=== PATIENT | male | born 1990 | race Caucasian/White ===

== ENCOUNTER → 2022-04-09 | Outpatient (CLI) | payer OTHER, SELFPAY ==
[2022-04-09 12:30] LABS: Absolute Lymphocyte Count 2.19 X10^3/uL (0.83-4.51); Absolute Neutrophil Count 3.5 X10^3/uL (2.0-7.7); Basophil# 0.03 X10^3/uL; Basophil% 0.5 % (0-1); Eosinophil# 0.16 X10^3/uL; Eosinophils% 2.5 % (0-5); Hematocrit 45.2 % (40-54); Lymphocyte # 2.19 X10^3/ul (0.83-4.51); Lymphocyte % 34.3 % (19-41); Mean Corp Hgb Conc 33.2 g/dL (32-36); Mean Corpuscular Hgb 30.4 pg (27.0-32.0); Mean Corpuscular Volume 91.5 fL (80-94); Mean Platelet Vol. 11.6 fl (6.2-12.0); Monocyte# 0.49 X10^3/uL; Monocyte% 7.7 % (0-10); NRBC Flagged by Analyzer 0 % (0-5); Neutrophil # 3.49 X10^3/uL (2.7-7.7); Neutrophil % 54.5 % (47-70); Platelet Count 247 K/mm3 (150-450); RBC Distribution Width CV 12.6 % (11.6-14.6); RBC Distribution Width SD 41.7 fl (35.1-43.9); Red Blood Count 4.94 M/mm3 (4.6-6.2); White Blood Count 6.4 K/mm3 (4.4-11.0)
[2022-04-09 13:08] LABS: ALB/GLOB Ratio 1.3 RATIO (0.9-2.4); AST(SGOT) 45 U/L (15-37); Alanine Aminotransfer ALT/SGPT 77 U/L (16-61); Albumin, Serum 4.3 g/dL (3.2-5.0); Alkaline Phosphatase 127 U/L (45-117); Anion Gap 9 (5-15); BUN 12 mg/dL (7-18); BUN/Creat Ratio 15.1 RATIO (10-20); Calcium,Total 9.4 mg/dL (8.5-10.1); Chloride 106 mmol/L (98-107); Creatinine, Serum 0.79 mg/dL (0.70-1.30); EST Glomerular Filtration Rate 122 mL/min (>60); Est Glom Filt Rate - Afr Amer 147 mL/min (>60); Globulin 3.4 g/dL (2.2-4.2); Glucose 87 mg/dL (74-106); Potassium 3.8 mmol/L (3.5-5.1); Protein, Total 7.7 g/dL (6.4-8.2); Sodium Level 140 mmol/L (136-145)
== END | disposition home or self-care (01) ==
LOC: MFPLAB 11:23
PROVIDERS: Visit Provider Family Medicine
DX: Z01.818 Encounter for other preprocedural examination (principal)
CPT/HCPCS: 36415; 80053; 85025

== ENCOUNTER 2022-04-27 10:48 | Day surgery (SDC) | payer OTHER, SELFPAY ==
[2022-04-27] VITALS (8 sets, daily range): BP systolic 117–144; BP diastolic 67–82; PULSE 73–91; RESP 16–20; TEMP 36.2–36.6; O2SAT 92–100; BMI 29.4
[2022-04-27] MEDS: Lactated Ringers 1,000 ML 15 ML IV (11:23)
--- NOTE | 2022-04-27 11:41 | DCINST_ITS ---
Discharge Instructions Diet Discharge Diet: No restrictions Activity Discharge Activity: May Shower (Use cast bag covering to keep dressings clean, dry, and intact. Shower while seated) and Use Crutches (Use crutches or knee scooter to assist in remaining compliant with nonweightbearing status to left lower extremity) Weight Bearing Status: No weight bearing (Please remain nonweightbearing to the left lower extremity with use of crutches or knee scooter) Keep extremity elevated above heart level: Left Leg (Elevate left lower extremity at all times of rest for postoperative edema control) Dressing / Incision Call your doctor if you observe: Fever of 101 or Higher, Chest pain, Calf discomfort and Uncontrolled pain Change Dressing in: do not change dressing (Please keep dressings clean dry and intact to left foot) Remove Dressing in: leave in place till F/U (Physician will change dressing at first postoperative visit) Cleanse incision/area with: Do not get Incision Wet and Keep Dressing Clean & Dry (Please keep dressings clean, dry, and intact to the left lower extremity) Follow Up Care Please Follow Up With: Husam Holman DPM When: Patient has first postoperative appointment scheduled in office next week Test Results: Test results from this visit will be discussed in further detail at your follow- up appointment, if applicable. Discharge Plan Admission Attending Provider: Husam Holman Primary Care Provider: Spencer Queen Discharge Orders/Prescriptions Prescriptions: New doxycycline hyclate 100 mg capsule 100 mg PO DAILY Qty: 10 0RF aspirin 325 mg capsule 325 mg PO DAILY Qty: 20 0RF oxycodone 5 mg capsule 5 mg PO Q4H PRN (Reason: pain) 7 Days Qty: 28 0RF acetaminophen 325 mg capsule 325 mg PO Q4H PRN (Reason: pain) 7 Days Qty: 28 0RF No Action rizatriptan 5 mg Tablet,Disintegrating 5 mg PO Q2H PRN (Reason: Migraine Headache) Rx Instructions: do not exceed 6 doses per 24 hrs [place] 3 Fish Oil Concentrate Capsule 1,000 mg PO DAILY duloxetine [Cymbalta] 30 mg Capsule,Delayed Release(Dr/Ec) 30 mg PO QHS cholecalciferol (vitamin D3) [Vitamin D3] 25 mcg (1,000 unit) Tablet 25 mcg PO DAILY melatonin 2.5 mg Tablet,Chewable 2.5 mg PO QHS colchicine 0.6 mg Capsule 0.6 mg PO DAILY allopurinol 200 mg Tablet 400 mg PO QHS Referrals / Follow Up: Spencer Queen DO [Primary Care Provider] - Disposition Disposition (needs filled in before D/C Order can be placed): Home, Self Care
[2022-04-27] MEDS: Cefazolin 2 GM in 0.9% Normal Saline 100 ML IV (12:09)
--- NOTE | 2022-04-27 12:23 | RAD_ITS ---
STUDY: X-RAY - LEFT ANKLE REASON FOR EXAM: Male, 32 years old. Intraoperative digital documentation. TECHNIQUE: 2 intraoperative digital documentation view(s) of the ankle. COMPARISON: None. FINDINGS: 2 intraoperative digital documentation views were obtained. RAD/Ankle 2 Views IMPRESSION: Intraoperative digital documentation views. Electronically Signed: Dipak Ricks, at 13:58 EST ,
[2022-04-27] MEDS: Bupivacaine 0.25% 30 ML Vial (12:39)
[2022-04-27] MEDS: Lidocaine 1% (30 ml sdv) 30 ML Vial (12:39)
--- NOTE | 2022-04-27 13:56 | OP.PCM_ITS ---
Problems Associated Problem List Diagnoses (1) Subluxation of peroneal tendon of left foot: Report of Operation Date of Procedure: 04/27/22 Pre-Operative Diagnosis: Subluxation of peroneal tendons left foot Post-Operative Diagnosis: Subluxation peroneal tendons left foot Surgery/Procedure Performed:: 1. Peroneal groove deepening with relocation of peroneal tendons left ankle 2. Repair of the peroneal retinaculum left foot Description of Surgical Findings:: See operative report for findings Surgeon: Husam Holman systems requirements planner: Yuridia Montaño DPM PGY-1 Type of Anesthesia: General and Local (10 cc 1:1 mixture of 1% lidocaine plain and 0.25% Marcaine plain) Specimen's removed: None Drains: None Estimated Blood Loss (mL): < 5mL Description of Procedure: HPI/indication: Patient is a 32-year-old male who presented to the office on 03/05/2022 with complaining of popping of the left ankle following an ankle sprain that occurred while rockclimbing last fall. [facility] and has been having chronic popping of the ankle and noticed that his tendons are slipping out of place. He reported some discomfort with this on occasion. Examination was performed and he demonstrates subluxing peroneal brevis and longus tendons following his ankle sprain injury. The tendons are visible below the skin slipping out over the lateral malleolus with subluxing tendons able to return to anatomic position with movement of the ankle but will sublux again with continued movement. He did have history of flatfoot reconstruction surgery as a teenager and reports no issues. I discussed the risks of dislocating peroneal tendons and the risk of repeated subluxation that will result in peroneal tendinitis, partial tearing, or spontaneous rupture of the peroneal tendons. Discussed long-term biomechanical effects and subluxing peroneal tendons. He has tried conservative care options of ankle brace, orthotics, supportive shoe gear, change of hiking boots. Patient does not want to wear an ankle brace at all times for the rest of his life and wishes to remain active. I discussed surgical intervention with him and his to perform a peroneal groove deepening with relocation and possible repair of the peroneal tendons and the peroneal retinaculum. He would like to proceed forward with surgical intervention. He was sent for clearance by his primary care physician and has been cleared to undergo surgical intervention. Surgical discussion was had 04/18/2022 with present. Discussed the procedure in great detail. Discussed the postoperative course in great detail. Discussed expected healing time in great detail. Patient and understand the procedure and expected course of postoperative healing. Gauge patient and 's expectations of surgery. Expectations are to relocate tendons to prevent further injury, improve strength in the foot/leg, and eventual return to an active lifestyle. Discussed with the patient and the that these are reasonable expectations. I again reviewed his condition and treatment options. He does have limiting pain with risk of peroneal rupture. Patient would like to proceed forward with the surgical intervention. I discussed all possible benefits versus risks and potential complications in detail. Advised the patient that the risks include but not limited to the following: Pain, continued pain, complex regional pain syndrome, deformity, continued deformity, recurrence, overcorrection, under correction, neuritis/numbness, swelling, scarring, poor cosmetic result, bleeding, need for further surgery/procedures, fracture, nonunion, delayed union, nonhealing/delayed healing, dehiscence, infection, blood clots, allergic reaction, loss of function, postoperative arthritis, weakness, shoe gear problem s, inability to walk, inability to wear shoes, stroke, heart attack, addiction to pain medication, loss of limb, loss of life. Patient expressed understanding of these risks. Patient voices understanding and wishes to proceed forward with surgical intervention. The consent forms were reviewed with the patient and the patient freely signed them. No guarantees were given. No promises were made. Patient was scheduled to undergo surgical intervention at [facility] 04/27/2022. Diagnostic data was reviewed prior to surgery. Operative limb was signed prior to entering the OR. Procedure: Under mild sedation patient was brought to the operating room. General anesthesia was administered, and the patient was placed on the operating table in the prone position. Next a pneumatic thigh tourniquet was placed about the patient's left thigh. The foot and leg were then scrubbed, prepped, and draped in the usual aseptic manner. An Esmarch bandage was utilized to exsanguinate the left lower extremity and the pneumatic thigh tourniquet was inflated to 300 mmHg. Next attention was directed to the lateral ankle where a linear incision was made overlying the distal fibula utilizing a #15 blade. Incision was deepened through sharp and blunt dissection. Care was taken to identify all vital neurovascular structures. The structures were retracted and protected throughout the duration of this case. Next the peroneal tendons were identified, and the ankle was ranged with noted subluxation of the peroneal longus and brevis tendons. The tendons were retracted to access the posterior fibula where an osteotome and a mallet was utilized to score the posterior distal fibula creating a trapdoor of the outer cortex. Next the door was open with the hinge directed medially and a portion of the underlying cortical bone was debrided with a curette to allow for deepening of the peroneal groove without disruption of the cartilage of the posterior distal fibula at the peroneal groove. The trapdoor was closed in the groove was noted to be deeper. The tendons were placed back in to the groove and the ankle underwent range of motion in dorsiflexion, plantarflexion, eversion, inversion, and a combination of these motions. The peroneal tendons were noted to remain within the peroneal groove without subluxation/dislocation. The site was then flushed with copious amounts of normal sterile saline. Next the peroneal tendons were inspected for tearing. No tendon tears were identified. The peroneal retinaculum was reconstructed utilizing a 4-0 Vicryl. The deep tissues were then closed utilizing a 4-0 Vicryl. The subcutaneous tissues were closed with a 4-0 Monocryl. The skin was reapproximated with a 4-0 Prolene. At this time the pneumatic thigh tourniquet was deflated and a prompt hyperemic response was noted to the digits of the left foot. The site was dressed with Betadine soaked Adaptic, 4 x 4 gauze, Kerlix, ABD, 4 inch Jorge wrap and 6 inch Jorge wrap. Patient was placed into a posterior splint and anchored with a 4 inch and 6 inch Jorge wrap. Patient tolerated the procedure and anesthesia well and was transported to PACU with vital signs stable vascular status intact to the left foot. He received his discharge instructions outlining postoperative care including strict nonweightbearing status to the left lower extremity. He will keep dressings clean, dry, and intact to the left foot and will follow-up in office for postoperative care next week. Grafts/Implants Used: None Complications None Admit VTE Documentation VTE Present on Admission: No VTE Mechan Device Prophylaxis: SCD's VTE Pharm Prophylaxis ordered?: Yes
--- NOTE | 2022-04-27 14:19 | RAD_ITS ---
STUDY: X-RAY - LEFT ANKLE REASON FOR EXAM: Male, 32 years old. Postop peroneal tendon dislocation TECHNIQUE: 3 view(s) of the ankle. COMPARISON: None. FINDINGS: Normal visualized distal tibia and fibula. Normal medial and lateral malleoli. Normal tibiotalar articulation and ankle mortise. Calcaneal spurs. The visualized subtalar, talonavicular, calcaneocuboid and tarsal articulations are normal. Soft tissue swelling RAD/Ankle min 3 Views IMPRESSION: Soft tissue swelling. Electronically Signed: Hubert Izquierdo MD at 14:31 EST ,
== END 2022-04-27 16:20 | disposition home or self-care (01) ==
LOC: SDC 10:52 → AC 10:52
PROVIDERS: PCP Family Medicine; Referring Provider Student in an Organized Health Care Education/Training Program; Visit Provider Student in an Organized Health Care Education/Training Program
PROC: (CPT 27650; principal; 2022-04-27 12:00)
DX: S86.312A Strain of muscle(s) and tendon(s) of peroneal muscle group at lower leg level, left leg, initial encounter (principal); S93.02XA Subluxation of left ankle joint, initial encounter; X58.XXXA Exposure to other specified factors, initial encounter; Y93.31 Activity, mountain climbing, rock climbing and wall climbing; Y99.8 Other external cause status; M10.9 Gout, unspecified; Z86.16 Personal history of COVID-19; Z79.899 Other long term (current) drug therapy
CPT/HCPCS: 27676; 27658; 01484; 64445; 73600; 73610; 76000; J7120; J2405

== ENCOUNTER 2022-09-06 09:00 | Outpatient (RCR) | payer OTHER, SELFPAY ==
--- NOTE | 2022-07-02 19:30 | HP.PTEVAL_ITS ---
Patient's Visit Information KADY FLETCHER is a 32 year old M referred to Physical Therapy by Dr. Husam Holman DPM with a diagnosis of S/P REPAIR OF SUBLUXED PERONEALM TENDON LEFT FOOT. Date of Evaluation: 07/02/22 Physical Therapist: Garrett Cano, PT, Cert MDT, OCS - Visit Plan Frequency: 2x /Week Duration: 4 Weeks Plan: PT INTERVETIONS G-S FLEXABILITY ,MANUAL STICK/FOAM ROLLING/STM ( DRY NEEDLING) ,STRENGTHENING EX'S ANKLE ,PROPRIOCEPTION - Subjective This 32 y/o male presents to physical therapy with post op subluxed peroneal tendon. Patient underwent repair left peroneal tendon on April [address] Holman at [facility] . Patient d/c crutches with NWB with soft cast for 3weeks and place in CAM boot 2weeks used kneeling scooter . Then progressed to gradual WBAT with CAM boot an d weaned from crutches. Patient was removed in CAM boot June 13 then in shoe. Then recommended PT . Initially ,injury in Nov rock climbing never seen DR but tendon was popping /subluxed . Patient was experiencing sopme pain and weakness. Patient denies paresthesia but mild in toes. Sleeping okay. Patient has some edema. Seen DR ~ 2weeks ago . Did have x-rays looked good. Patient goals to return to rock climbing and running. 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 GAIT: reciprocal pattern. EDEMA: trimalleor joint line 54.2 cm. AROM ANKLE : dorsiflexion 5 degrees from 0, plantarflexion 65 degrees ,eversion 5 degrees ,inversion 35 degrees. 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 NEURO: intact. PALAPTION: tender G-S - Balance/Special Test Scores Lower Extremity Functional Score: 34 - Goals Goal 1:: I with HEP for ankle Goal Time Frame: 4-6 Weeks Goal 2:: Patient to improve AROM ankle WNL left = right to improve gait Goal Time Frame: 4-6 Weeks Goal 3:: Patient to improve strength peak force ankle by 5-10 to improve function Goal Time Frame: 4-6 Weeks Goal 4:: Patient to improve proprioception left = right to improve gait and ret urn emelyn rock climbing Goal 5:: Patient to improve LFES score by 10 points > to improve QOL and function and rock climbing Goal Time Frame: 4-6 Weeks - Rehabilitation Potential Physical Therapy Diagnosis: This patient underwent s/p repair of peroneal repair on April 27 with decrease ROM, strength, proprioception thus benefit from skilled PT Rehabilitation Potential: Good - Anticipated Interventions Patient/Client Instruction: Educate patient on: Condition, Plan of Care For the Purpose of:: To decrease pain, To increase ROM, To improve muscle performance and motor function, To improve ability to perform ADL's, To increase tolerance to activity/condition/position, To improve ability of physical actions for home/community/work/leisure, To improve health of tissue, To decrease soft tissue restriction, To increase flexibility/ROM Therapeutic Exercise to Include: Strength training, Endurance training, Balance training, Flexibilty training, Passive ROM, Active ROM Comment: ANKLE For the Purpose of:: To decrease pain, To increase ROM, To improve muscle performance and motor function, To improve ability to perform ADL's, To increase tolerance to activity/condition/position, To improve ability of physical actions for home/community/work/leisure, To improve health of tissue, To decrease soft tissue restriction, To increase flexibility/ROM, To prevent re-injury Manual Therapy Techniques to Include: Mobilization, Soft tissue mobilization Comment: STICK CALF For the Purpose of:: To decrease pain, To increase ROM, To improve nutrient delivery to tissue, To increase oxygenation perfusion, To improve health of tissue, To decrease soft tissue restriction Thank you for the opportunity to evaluate your patient. For Medicare and Medicare HMO plans, please review the plan of care and approve it. It will need to be FAXED BACK to us at [phone] for Medicare purposes. For Medicare only, by signing this I certify the plan of care. Please let me know if there are questions or concerns regarding this plan of care. Physician Sig nature: Date:
--- NOTE | 2022-07-03 16:13 | HP.PTEVAL_ITS ---
Patient's Visit Information KADY FLETCHER is a 32 year old M referred to Physical Therapy by Dr. Husam Holman DPM with a diagnosis of S/P REPAIR OF SUBLUXED PERONEAL TENDON LEFT FOOT. Date of Evaluation: 07/02/22 Physical Therapist: Garrett Cano, PT, Cert MDT, OCS - Visit Plan Frequency: 2x /Week Duration: 4 Weeks Plan: PT INTERVETIONS G-S FLEXABILITY ,MANUAL STICK/FOAM ROLLING/STM ,STRENGTHENING EX'S ANKLE ,PROPRIOCEPTION - Subjective This 32 y/o male presents to physical therapy with post op subluxed peroneal tendon. Patient underwent repair left peroneal tendon on April [address] Holman at [facility] . Patient d/c crutches with NWB with soft cast for 3weeks and place in CAM boot 2weeks used kneeling scooter . Then progressed to gradual WBAT with CAM boot an d weaned from crutches. Patient was removed in CAM boot June 13 then in shoe. Then recommended PT . Initially ,injury in Nov rock climbing never seen DR but tendon was popping /subluxed . Patient was experiencing sopme pain and weakness. Patient denies paresthesia but mild in toes. Sleeping okay. Patient has some edema. Seen DR ~ 2weeks ago . Did have x-rays looked good. Patient goals to return to rock climbing and running. SOCIAL: . VOCATION: [employer] 5TH GRADE - Pain Left Ankle Pain Intensity (Out of 10): 4 Pain Intensity Range: 10 - Objective POSTURE: pes planus. GAIT: reciprocal pattern. EDEMA: trimalleor joint line 54.2 cm. AROM ANKLE : dorsiflexion 5 degrees from 0, plantarflexion 65 degrees ,eversion 5 degrees ,inversion 35 degrees. 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 NEURO: intact. PALAPTION: tender G-S - Balance/Special Test Scores Lower Extremity Functional Score: 34 - Goals Goal 1:: I with HEP for ankle Goal Time Frame: 4-6 Weeks Goal 2:: Patient to improve AROM ankle WNL left = right to improve gait Goal Time Frame: 4-6 Weeks Goal 3:: Patient to improve strength peak force ankle by 5-10 to improve function Goal Time Frame: 4-6 Weeks Goal 4:: Patient to improve proprioception left = right to improve gait and return emelyn rock climbing Goal 5:: Patient to improve LFES score by 10 points > to improve QOL and function and rock climbing Goal Time Frame: 4-6 Weeks - Rehabilitation Potential Physical Therapy Diagnosis: This patient underwent s/p repair of peroneal repair on April 27 with decrease ROM, strength, proprioception thus benefit from skilled PT Rehabilitation Potential: Good - Anticipated Interventions Patient/Client Instruction: Educate patient on: Condition, Plan of Care For the Purpose of:: To decrease pain, To increase ROM, To improve muscle performance and motor function, To improve ability to perform ADL's, To increase tolerance to activity/condition/position, To improve ability of physical actions for home/community/work/leisure, To improve health of tissue, To decrease soft tissue restriction, To increase flexibility/ROM Therapeutic Exercise to Include: Strength training, Endurance training, Balance training, Flexibilty training, Passive ROM, Active ROM Comment: ANKLE For the Purpose of:: To decrease pain, To increase ROM, To improve muscle performance and motor function, To improve ability to perform ADL's, To increase tolerance to activity/condition/position, To improve ability of physical actions for home/community/work/leisure, To improve health of tissue, To decrease soft tissue restriction, To increase flexibility/ROM, To prevent re-injury Manual Therapy Techniques to Include: Mobilization, Soft tissue mobilization Comment: STICK CALF For the Purpose of:: To decrease pain, To increase ROM, To improve nutrient delivery to tissue, To increase oxygenation perfusion, To improve health of tissue, To decrease soft tissue restriction Thank you for the opportunity to evaluate your patient. For Medicare and Medicare HMO plans, please review the plan of care and approve it. It will need to be FAXED BACK to us at [phone] for Medicare purposes. For Medicare only, by signing this I certify the plan of care. Please let me know if there are questions or concerns regarding this plan of care. Physician Signature: Date:
== END 2022-09-06 19:00 | disposition home or self-care (01) ==
LOC: PT 09:00
PROVIDERS: PCP Family Medicine; Referring Provider Student in an Organized Health Care Education/Training Program; Visit Provider Student in an Organized Health Care Education/Training Program
DX: Z47.89 Encounter for other orthopedic aftercare (principal); S86.312D Strain of muscle(s) and tendon(s) of peroneal muscle group at lower leg level, left leg, subsequent encounter
CPT/HCPCS: 97110; 97162

== ENCOUNTER 2023-09-17 12:00 | Outpatient (RCR) | payer OTHER, SELFPAY ==
--- NOTE | 2023-08-26 12:43 | HP.PTEVAL ---
Patient's Visit Information Visit Information Visit Information: KADY FLETCHER is a 33 year old M referred to Physical Therapy by Dr. Spencer Queen DO with a diagnosis of Neck Pain. Date of Evaluation: 08/26/23 Physical Therapist: Leona Valera, PT, Cert MDT Visit Plan Frequency: 1-2x /Week Duration: 2-4 Weeks Plan: Manual Therapy for STM. Scapular Strengthening and B Pec/UT/Levator/Scalene Stretching to help reduce stress on Cervical Spine with Daily Activities. US at 1.3 W/CM2 100% to R Neck Musculature in Sitting. Moist Heat to Neck as needed. Instruction in Proper Posture Control, Ergonomics with ADL's and Appropriate Activity Modifications. HEP Instructions. 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 Present symptoms: LEFT NECK PAIN. HEADACHES. HEADACHS ARE ABOUT ONCE A WEEK AND ABOUT ONCE A MONTH THEY ARE BAD ENOUGHT THAT HE CAN NOT DO ANYTHING THAT DAY. DENIES EFRAIN UE PAIN, NUMBNESS AND TINGLING. Present since: ABOUT 5 YEARS AGO Pain Scale: WORST 9/10, LEAST 1/10 Currently: 1/10 Commenced as a result of: NO APPARENT REASON Symptoms at onset: LEFT NECK PAIN/MUSCLE SPASM/PINCH Worse: HEAVY LIFTING, TRYING TO LIFT WEIGHTS FOR EX, BEING SEDENTARY, LONG CAR RIDES, DEHYDRATION, CERTAIN LANDING TECHNIQUES AND HEAD TURNING DURING ROCK CLIMBING. Better: ALMOST NOTHING Disturbed sleep: YES Previous history/Previous treatment: CHIROPRACTIC AND DRY NEEDLING WITH TEMPORARY RELIEF - LASK VISIT WAS ABOUT 6 MONTHS AGO. STAT CARE ABOUT A YEAR - PRESCRIBED M. RELAXER WITH BENEFIT BUT DOESN'T LIKE TAKING THEM BECAUSE THEY MAKE HIIM DROWSY. This episode: PT CONSULT Dizziness: NO Tinnitus: NO Nausea: NO Shortness of Breath: NO Difficulty Swollowing: NO Gait: NORMAL Accidents: NO Unexplained weight loss: NO Imaging: NECK X-RAY ABOUT 4 YEARS AGO - NORMAL. NO MRI. NO L SHLD IMAGING. PMH: GOUT, HIGH CHOLESTEROL OTHER: HASN'T TRIED FREE WIGHTS IN A LONG TIME BECAUSE USUALLY FLARES HIM UP. WOULD LIKE TO LOSE 20 LBS AND WORK OUT BUT AFRAID OF FLARING UP NECK. Objective Objective: Sitting Posture/Standing Posture: FAIR. FH. RSH'S. L SHLD LOWER AND MORE ANT THAN R. NO TORTICOLLIS. Active Correction of posture: BETTER. ABLE TO NEAR FULL CORRECT. DOES NOT MAINTAIN. Other Observations: INDEP GAIT AND TRANSFERS. Sensory deficit: EFRAIN UE LIGHT TOUCH SENSATION GROSSLY INTACT AND SYMMETRICAL ROM deficit: EFRAIN UE ROM WFL ALL PLANES Motor deficit: EFRAIN UE'S WFL EXCEPT SCAPULAR STABILIZER MILD WEAKNESS. PATIENT IS R HAND DOMINANT WITH A R LEVELER HELPER STRENTH OF 102 LBS AND L 105 LBS TODAY. NECK STABILIZER WEAKNESS EVIDENT WITH HEAD LIFT TEST- ONLY ABLE TO HOLD 3 SEC AND SHAKING VISIBLE - NO PAIN. Reflexes: UNABLE TO ELICIT EFRAIN UE DTR'S Dural Signs: NEGATIVE EFRAIN UE'S Cervical Mvmt Loss: Flex: NIL Pro: NIL Ext: NIL Ret: MIN RSB: MIN - INCREASES R NECK - NW PINCH LSB: MIN - MORE LIMITED THAN RSB - NE R Rot: MIN - INCREASES R NECK - NW PINCH L Rot: MIN - NE MILD PAIN REMAINED ON THE L SIDE OF NECK THROUGHOUT TESTING BUT TESTING DID NOT EFFECT LEFT NECK PAIN. R NECK USUALLY FEELS TIGHT AND PINCHING WAS PROVOKED WITH TESTING ON THE RIGHT. Postural strength: FAIR Seated Cervical Distraction Testing: ALLIEVIATES R NECK TIGHTNESS A LITTLE BIT. NE L NECK PAIN. Palpation: INCREASED M. TONE EFRAIN CERVICAL MUSCULATURE. NO ACUTE NECK TENDERNESS. Balance/Special Test Scores Oswestry Neck Score: 8 Goals Goal 1:: DECREASE C/O HEAD AND NECK PAIN BY AT LEAST 50% TO EASE ADL'S. Goal Time Frame: 4-6 Weeks Goal 2:: IMPROVE LIFTING, READING, DRIVING, AND RECREATIONAL FUNCTION TO UNLIMITED FUNCTION. Goal Time Frame: 4-6 Weeks Goal 3:: PATIENT WILL BE INDEP WITH A HEP FOR CONTINUED IMPROVEMENT ONCE FORMAL PHYSICAL THERAPY CONCLUDES. Goal Time Frame: 4-6 Weeks Rehabilitation Potential Physical Therapy Diagnosis: NECK STIFFNESS AND MUSCLE GUARDING WITH SCAPULAR AND POSTURAL WEAKNESS. Rehabilitation Potential: Good Anticipated Interventions Patient/Client Instruction: Educate patient on: Condition, Plan of Care and Risk Factors For the Purpose of:: To improve self management Therapeutic Exercise to Include: Strength training, Body mechanics, Postural training, Flexibilty training, Neuromotor development and Alex Exercises For the Purpose of:: To decrease pain, To increase ROM, To improve muscle performance and motor function, To increase tolerance to activity/condition/position, To improve ability of physical actions for home/community/work/leisure and To increase flexibility/ROM Manual Therapy Techniques to Include: Soft tissue mobilization For the Purpose of:: To decrease pain, To improve nutrient delivery to tissue and To decrease soft tissue restriction Thermo therapy (hot pack): Yes Ultrasound (thermal/non thermal): Yes For the Purpose of:: To decrease pain and To improve nutrient delivery to tissue Text: Thank you for the opportunity to evaluate your patient. For Medicare and Medicare HMO plans, please review the plan of care and approve it. It will need to be FAXED BACK to us at [phone] for Medicare purposes. For Medicare only, by signing this I certify the plan of care. Please let me know if there are questions or concerns regarding this plan of care. Physician Signature: Date:
--- NOTE | 2024-02-13 14:42 | HP.PT.NRP ---
Patient Information Patient Information: KADY FLETCHER was seen in my office for initial evaluation on 08/26/23. The following Plan of Care was established for this patient: POC Established Initial Frequency: 1-2x /Week Initial Duration: 2-4 Weeks Anticipated Interventions Patient/Client Instruction: Educate patient on: Condition, Plan of Care and Risk Factors For the Purpose of:: To improve self management Therapeutic Exercise to Include: Strength training, Body mechanics, Postural training, Flexibilty training, Neuromotor development and Alex Exercises For the Purpose of:: To decrease pain, To increase ROM, To improve muscle performance and motor function, To increase tolerance to activity/condition/position, To improve ability of physical actions for home/community/work/leisure and To increase flexibility/ROM Manual Therapy Techniques to Include: Soft tissue mobilization For the Purpose of:: To decrease pain, To improve nutrient delivery to tissue and To decrease soft tissue restriction Thermo therapy (hot pack): Yes Ultrasound (thermal/non thermal): Yes For the Purpose of:: To decrease pain and To improve nutrient delivery to tissue Last Seen Last Seen: This patient was last seen in our office 09/17/23. Pertinent comments regarding their Physical therapy will appear below: It has been my pleasure to see this patient for a total of 4 visits. This patient has not returned to Physical Therapy for more visits and is appropriate to return to MD for further follow-up as needed. At this point I will be discontinuing this patient from physical therapy. I would be happy to see this patient again in the future if found appropriate by the physician. Thank you! Leona Valera, PT, Cert MDT Balance/Gait/Functional tests Balance/Special Test Scores Oswestry Neck Score: 8
== END 2023-09-17 19:00 | disposition home or self-care (01) ==
LOC: PT 12:00
PROVIDERS: PCP Family Medicine; Referring Provider Family Medicine; Visit Provider Family Medicine
DX: M54.2 Cervicalgia (principal)
CPT/HCPCS: 97035; 97162; 97530

== ENCOUNTER → 2024-01-10 | Outpatient (CLI) | payer OTHER, SELFPAY ==
--- NOTE | 2024-01-10 13:30 | RAD_ITS ---
EXAM: XR CHEST, 2 VIEWS CLINICAL INDICATION: COUGH,SOB,FEVER AFTER A BRIEF EPISODE OF NAUSEA, VOMITING, DIARRH TECHNIQUE: Frontal and lateral views of the chest. COMPARISON: No relevant prior studies available. FINDINGS: LUNGS AND PLEURAL SPACES: Unremarkable. No consolidation or edema. No pneumothorax. No effusion. HEART: Unremarkable. Cardiac silhouette not enlarged. MEDIASTINUM: Central airways and mediastinal contour are unremarkable. BONES/JOINTS: Unremarkable. No acute fracture. SOFT TISSUES: Unremarkable. RAD/Chest PA and Lateral IMPRESSION: No radiographic evidence of acute cardiopulmonary disease. Electronically Signed: Carlos Gasca MD at 17:56 EST ,
== END | disposition home or self-care (01) ==
PROVIDERS: PCP Family Medicine; Referring Provider Nurse Practitioner Family; Visit Provider Nurse Practitioner Family
DX: R05.9 Cough, unspecified (principal); R11.2 Nausea with vomiting, unspecified
CPT/HCPCS: 71046